=== PATIENT | female | born 1935 | race Two or more races ===

== ENCOUNTER 2025-01-13 20:54 | Emergency (ER) | payer OTHER, SELFPAY ==
--- OUTSIDE RECORDS SUMMARY | 2024-01-09 09:00 | XMS_ITS ---
Author Organization [facility] Address [address] [place] [id number] Care Team Providers Care Gas Fitter Apprentice Name Role Phone Cintia Bundy Primary Care Provider UnavailMELANI Cruz Unavailable [phone] BEAR LIU Unavailable [phone] REASON FOR VISIT Six month follow up, PCP: Dr. Cintia Bundy, Pharmacy: [facility] in [place] Medications Medication SIG (Take, Route, Frequency, Duration) Notes Start Date End Date Status Glimepiride 2 MG TAKE 1 TABLET BY EFFIE TH EVERY DAY WITH BREAKFAST OR THE FIRST MAIN MEAL OF THE DAY FOR 90 DAYS Oral; Duration: 90 Days Active Lisinopril 5 MG TAKE 1 TABLET BY EFFIE TH EVERY DAY Oral; Duration: 90 Days Active metFORMIN HCl 850 MG TAKE 1 TABLET BY MO UTH TWICE A DAY WITH MEALS Oral; Duration: 90 Days Active Methocarbamol 750 MG TAKE 1 TABLET BY MO UTH EVERY 4 HOURS NEEDED MUSCLE SPASMS Oral; Duration: 5 Days Active Rosuvastatin Calcium 20 MG TAKE 1 TABLET BY MOUTH EVERY DAY Oral; Duration: 90 Days Active Acetaminophen Extra Strength 500 MG TAKE 2 TABLETS EVERY 6 HOURS NEEDED FOR PAIN Oral; Duration: 7 Days Active Encounters Encounter Location Date Provider Diagnosis [facility] [address] [place] [address] 01/09/2024 BEAR LIU Hyperlipidemia, unspecified E78.5 ; CVA - Cerebral Infarction I63.9 ; Chest pain, precordial R07.2 ; Abnormal EKG R94.31 ; Essential (primary) hypertension I10 ; Peripheral vascular disease, unspecified I73.9 ; Venous insufficiency I87.2 ; Pain in left leg M79.605 ; Pain in right leg M79.604 and Type 2 diabetes mellitus without complications E11.9 Assessments Encounter Date Diagnosis (ICD Code) Assessment Notes Treatment Notes Treatment Clinical Notes Section Notes 01/09/2024 Hyperlipidemia, unspecified (ICD-10 - E78.5) 01/09/2024 CVA - Cerebral Infarction (ICD-10 - I63.9) 01/09/2024 Chest pain, precordial (ICD-10 - R07.2) 01/09/2024 Abnormal EKG (ICD-10 - R94.31) 01/09/2024 Essential (primary) hypertension (ICD-10 - I10) 01/09/2024 Peripheral vascular disease, unspecified (ICD-10 - I73.9) 01/09/2024 Venous insufficiency (ICD-10 - I87.2) 01/09/2024 Pain in left leg (ICD-10 - M79.605) 01/09/2024 Pain in right leg (ICD-10 - M79.604) 01/09/2024 Type 2 diabetes mellitus without complications (ICD-10 - E11.9) Plan Of Treatment Pending Test Test Name Order Date EKG - Electrocardiogram 01/09/2024 Progress Notes * Felicitas SHEPPARDOB: 8 (89 yo F)Acc No.[id number]:01/09/2024 Progress Notes Patient: Flaca MADRIGAL Provider: Devi LIU M.D. :1935 A ge:88 Y S ex:Female Date:01/09/2024 Address:[address] [place] [id number] Pcp:Cintia Bundy Subjective: * Chief Complaints: * 1 . Six month follow up. 2. PCP: Dr. Cintia Bundy. 3. Pharmacy: [facility] in [place]. * HPI: Mala alonso HPI: Ms. Sheppard is a 87 y/o woman with h/o HTN, HLP, DM, and mini-stroke in 2019 who presents to cardiology clinic for cardiac evaluation. PCP: Dr. Cintia Bundy. Referred by Dr. Cintia Bundy for HTN. ECG showed sinus rhythm with low voltage in the precordial symptoms. Per patient, in 2019, she presented with dizziness and aphasia. She was diagnosed with a mini-stroke. She was started on Aspirin, but then taken off of it 2 months after because she started having significant skin bruising. She occasionally gets chest pressure, sometimes, lasts seconds. Denies shortness of breath, palpitations, dizziness, syncope. She has LE edema and varicose veins on the right leg. She had a previous procedure in the left leg for the veins. She sometimes wears compression socks. She does have pain in her legs. She usually walks with a cane or walker. 05/2023: Here for testing follow up. 06/19 Echo showed LVEF 55-60%. G1DD. Calculated EF 58%. Trace MR, TR, and RI. 06/19 Susan stress test is ok, no ischemia noted. 06/19 Arterial study reveals slightly decreased perfusion of the lower extremity bilaterally. Minimal plaque noted bilateral lower extremity arteries. 06/19 Venous study showed no evidence of DVT of the BLE. There is evidence of right GSV relfux noted. Left GSV below knee is refluxing. Left GSV below knee is not visualized. Right SSV is refluxing. 06/19 Upper extremity arterial shows no significant velocity increase bilaterally. Carotid ultrasound not done. 07/20 Carotid US showed: Antegrade right vertebral artery flow. Antegrade left vertebral artery flow. No hemodynamically significant arterial disease in the internal carotid artery bilaterally. Plaques seen on left bulb. Complex nodule/cyst seen on left neck (area of concern as per patient). High bifurcation seen on right side Home blood pressures 128-140/87-90. Her only complaint is discomfort to her left neck in the area of the complex nodule/cyst noted on US. 01/17 Here for 6 month follow up. * ROS: M odern ROS: Modern ROS C ONSTITUTIONAL: Denies fever, chills, weight gain/loss, loss of appetite, night sweats. EYES: Denies diminished vision, eye irritation, eye pain, drainage, blurring vision, loss of vision. ENT: Denies cold, epistaxis, hearing loss, sore throat, change in voice, tinnitus, sinus pain. CARDIAC: Denies edema, orthopnea, PND. RESPIRATORY: Denies chest congestion, wheezing, cough, hemoptysis. GASTROINTESTINAL: Denies nausea, vomiting, heartburn, hemorrhoids, melena, hematemesis, abdominal pain. GENITOURINARY: Denies difficulty urinating, hematuria, polyuria, dysuria, dischange, sexual dysfunction. MUSCULOSKELETAL:Tender area to left neck. D enies joint swelling, joint pain, stiffness, sciatica, back pain, myalgia. SKIN: Denies rash, hives, skin cancer. NEURO: Denies headache, numbness, weakness, seizures, memory loss. PSYCHIATRIC: Denies depression, suicide, eating disorder. ENDOCRINE: Denies fatigue, heat/cold intolerance. HEMATOLOGIC/LYMPH: Denies swollen glands, easy bruising. ALLERGY/IMMUNOLOGY: Denies runny nose, scratchy throat, itchy eyes, ear fullness, sinus congestion.. * Medical History: * Medications: T aking Acetaminophen Extra Strength 500 MG Tablet TAKE 2 TABLETS EVERY 6 HOURS NEEDED FOR PAIN Oral , Taking Methocarbamol 750 MG Tablet TAKE 1 TABLET BY MOUTH EVERY 4 HOURS NEEDED MUSCLE SPASMS Oral , Taking Rosuvastatin Calcium 20 MG Tablet TAKE 1 TABLET BY MOUTH EVERY DAY Oral , Taking Lisinopril 5 MG Tablet TAKE 1 TABLET BY MOUTH EVERY DAY Oral , Taking metFORMIN HCl 850 MG Tablet TAKE 1 TABLET BY MOUTH TWICE A DAY WITH MEALS Oral , Taking Glimepiride 2 MG Tablet TAKE 1 TABLET BY MOUTH EVERY DAY WITH BREAKFAST OR THE FIRST MAIN MEAL OF THE DAY FOR 90 DAYS Oral Objective: * Vitals: Past Vitals:* 07/09/2023 Inhaled Oxygen Flow Rate: 99 , Wt: 146 lbs, BMI: 29.49 Index, Ht: 59 in, HR: 58 /min, BP LA: 150/84 mm Hg * 06/06/2023 Wt: 148 lbs, BMI: 29.89 Inde x, Ht: 59 in, HR: 70 /min, BP LA: 112/68 mm Hg * 05/02/2023 Wt: 149 lbs, BMI: 30.09 Inde x, Ht: 59 in, HR: 68 /min, BP LA: 126/72 mm Hg, BP Right: 156/62 * Physical Examination: P ei PE: Lisa PE G ENERAL: well nourished, well developed, no acute cardiopulmonary distress, fully alert & oriented; HEAD: normal; Eyes: PERRLA, EOM intact, normal sclera. ENT: nose normal, oropharynx is clear; NECK: supple, no carotid bruits, normal JVP, normal thyroid; CHEST: clear to auscultation bilaterally, without wheezing, rhonchi, or crackles; Breasts: deferred; CARDIOVASCULAR: regular rhythm, PMI not displaced, normal S1 & S2, no murmurs, no S3, S4, clicks, or pericardial rub; GI: abdomen soft, nontender, nondistended, normal bowel sounds; : deferred today; MUSCULOSKELETAL: joints & back normal; SKIN: No rash, warm; EXTREMITIES:Varicose veins on right leg; skin darkening changes on both legs; no clubbing, cyanosis, or edema, palpable pulses bilaterally; NEURO: grossly nonfocal, normal strength.. Assessment: * Assessment: 1. C VA - Cerebral Infarction - I63.9 (Primary) 2 . H yperlipidemia, unspecified - E78.5 3 . C hest pain, precordial - R07.2 4 . A bnormal EKG - R94.31 5 . E ssential (primary) hypertension - I10 6 . Peripheral vascular disease, unspecified - I73.9 7 . V enous insufficiency - I87.2 8 . P ain in left leg - M79.605 9 . P ain in right leg - M79.604 1 0. T ype 2 diabetes mellitus without complications - E11.9 ? Plan: * Treatment: * Imaging: * I maging: EKG - Electrocardiogram * Procedure Codes: 9 3000 -ELECTROCARDIOGRAM, COMPLETE * Preventive Medicine: Modern Preventive: M odtaylor Prevention R ecommendations to monitor blood pressure, eat a healthy diet high in fruits, vegetables, legumes, nuts, whole grains, low fat dairy and lean meats. Limit salt, saturated fat and trans fat. Read food label for nutrient content. Include regular exercise, limit alcohol intake, manage stress, and get enough sleep were discussed in detail with the patient. * Images: * Electronic signature of MARIOLA LIU MD on 01/13/2025 at 08:09 PM CDT Sign off status: Pending * Provider: Devi LIU M.D. Date: 0 01/09/2024 Generated for Rich crawford/Keiko/eTransmitting on: 0 01/13/2025 08:09 PM CDT History and Physical Notes * HPI (History of Present Illness) Category Sub-Category Detail Notes Category Not es Modern HPI Ms. Sheppard is a 87 y/o woman with h/o HTN, HLP, DM, and mini-stroke in 2018 who presents to cardiology clinic for cardiac evaluation. PCP: Dr. Cintia Bundy. Referred by Dr. Cintia Bundy for HTN. ECG showed sinus rhythm with low voltage in the precordial symptoms. Per patient, in 2019, she presented with dizziness and aphasia. She was diagnosed with a mini-stroke. She was started on Aspirin, but then taken off of it 2 months after because she started having significant skin bruising. She occasionally gets chest pressure, sometimes, lasts seconds. Denies shortness of breath, palpitations, dizziness, syncope. She has LE edema and varicose veins on the right leg. She had a previous procedure in the left leg for the veins. She sometimes wears compression socks. She does have pain in her legs. She usually walks with a cane or walker. 05/2023: Here for testing follow up. 06/19 Echo showed LVEF 55-60%. G1DD. Calculated EF 58%. Trace MR, TR, and RI. 06/19 Susan stress test is ok, no ischemia noted. 06/19 Arterial study reveals slightly decreased perfusion of the lower extremity bilaterally. Minimal plaque noted bilateral lower extremity arteries. 06/19 Venous study showed no evidence of DVT of the BLE. There is evidence of right GSV relfux noted. Left GSV below knee is refluxing. Left GSV below knee is not visualized. Right SSV is refluxing. 06/19 Upper extremity arterial shows no significant velocity increase bilaterally. Carotid ultrasound not done. 07/20 Carotid US showed: Antegrade right vertebral artery flow. Antegrade left vertebral artery flow. No hemodynamically significant arterial disease in the internal carotid artery bilaterally. Plaques seen on left bulb. Complex nodule/cyst seen on left neck (area of concern as per patient). High bifurcation seen on right side Home blood pressures 128-140/87-90. Her only complaint is discomfort to her left neck in the area of the complex nodule/cyst noted on US. 01/17 Here for 6 month follow up. Physical Examination Category Sub-Category Detail Notes Section Note s Lisa PE Lisa PE GENERAL: well no urished, well developed, no acute cardiopulmonary distress, fully alert & oriented; HEAD: normal; Eyes: PERRLA, EOM intact, normal sclera. ENT: nose normal, oropharynx is clear; NECK: supple, no carotid bruits, normal JVP, normal thyroid; CHEST: clear to auscultation bilaterally, without wheezing, rhonchi, or crackles; Breasts: deferred; CARDIOVASCULAR: regular rhythm, PMI not displaced, normal S1 & S2, no murmurs, no S3, S4, clicks, or pericardial rub; GI: abdomen soft, nontender, nondistended, normal bowel sounds; : deferred today; MUSCULOSKELETAL: joints & back normal; SKIN: No rash, warm; EXTREMITIES: Varicose veins on right leg; skin darkening changes on both legs; no clubbing, cyanosis, or edema, palpable pulses bilaterally; NEURO: grossly nonfocal, normal strength.
--- OUTSIDE RECORDS SUMMARY | 2024-03-14 05:00 | XMS_ITS ---
Author Organization [facility] Address [address] [facility] [place] [address] Care Team Providers Care Groundskeeper Name Role Phone Juan Manuel Dickerson Primary Care Provider Unavailabl NAHOMI Mendoza Unavailable Unavailable Migration, Provider Unavailable Unavailable REASON FOR VISIT EMR-Manoj Encounters Encounter Location Date Provider Diagnosis [facility] [address] [facility] [address] [place] [address] 03/14/2024 Provider Migration Plan Of Treatment Medication Medication Name Sig Start Date Stop Date Notes Simvastatin 10 MG Oral 12/30/2015 03/29/2016 Lyrica 50 MG Oral 01/10/2016 02/09/2016 Vit D2 1.25 Mg (50,000 Unit) 01/10/2016 016 *Reorder from [facility] for eRx and Interaction Alerts* Progress Notes * Felicitas SHEPPARDOB: 8 (89 yo F)Acc No.[id number]:03/14/2024 Patient: Flaca MADRIGAL :1935 A ge:88 Y S ex:Female Address:[address], [place], [address] * Refills Stop Lyrica Capsule, 50 MG, Oral Stop Vit D2 1.25 Mg (50,000 Unit) Stop Simvastatin Tablet, 10 MG, Oral Subjective: * Chief Complaints: * E MR-Manoj * Medical History: * Surgical History: * Hospitalization/Major Diagno stic Procedure: * Medications: Objective: * Vitals: * Physical Examination: Assessment: Plan: * Treatment: * Procedure Codes: * * Date:
--- OUTSIDE RECORDS SUMMARY | 2024-03-15 05:00 | XMS_ITS ---
Author Organization [facility] Address [address] [place] [address] Care Team Providers Care Fruit Packer Name Role Phone Juan Manuel Dickerson Primary Care Provider Unavailabl e NAHOMI FRIAS Unavailable Unavailable Migration, Provider Unavailable Unavailable REASON FOR VISIT [facility] [place] Encounter Location Date Provider Diagnosis [facility] [address] [facility] [address] [place] [address] 03/15/2024 Provider Migration Plan Of Treatment No Information Progress Notes * Felicitas SHEPPARDOB: 8 (89 yo F)Acc No.[id number]:03/15/2024 Patient: Flaca MADRIGAL :1935 A ge:88 Y S ex:Female Address:[address] [place] [address] Subjective: * Chief Complaints: * E MR-Manoj * Medical History: * Surgical History: C holecystectomy * Hospitalization/Major Diagno stic Procedure: * Social History: M igrated Social History: alcohol - Denies, a ny special diet - Denies, h epatitis vaccine A - Denies, h epatitis vaccine B - Denies, m ood altering/ enhancing drugs - Denies, r ecreational drugs - Denies, s leeping medications - Denies, s moking - Denies, S moking Status (MU) - <BLANK>. * Medications: Objective: * Vitals: * Physical Examination: Assessment: Plan: * Treatment: * Procedure Codes: * * Date:
--- OUTSIDE RECORDS SUMMARY | 2025-01-13 21:08 | XMS_ITS | Encounter Summary ---
Author Organization [facility] Address [address] [place] [address] Care Team Providers Care Appliance Installer Name Role Phone Huan Martinez MD Primary Care Provi lani Reason for Referral * MRI/CAT/PET Scan (Routine) - Closed Specialty Diagnoses / Procedures Referred By Contac t Referred To Contact Radiology Diagnoses Chronic post-traumatic headache, intractable Procedures CT Head Wo Contrast Huan Martinez MD Phone: tel: fax: [facility] [address] [place] [address] Referral ID Status Reason Start Date Expiration Date Visits Re quested Visits Authorized [id number] Closed 05/04/2021 08/08/2021 1 1 SHOVEL OPERATOR Encounter Details Date Type Department Care Team (Late st Contact Info) Description 05/04/2021 Transcribe Orders [facility] Central Scheduling [phone] Huan Martinez MD [address] [place] [id number] Chronic post-traumatic headache, intractable (Primary Dx); Low back pain; Localized swelling, mass and lump, right lower limb Social History Tobacco Use Types Packs/Day Years Used Date Smoking Tobacco: Never Smokeless Tobacco: Never Alcohol Use Standard Drinks/Week Comments Never 0 (1 standard drink = 0.6 oz pur e alcohol) PHQ-2 Answer Date Recorded PHQ-9 Total Score 0 12/15/2020 Comments No Sex and Gender Information Value Date Recorded Sex Assigned at Not on file Legal Sex Female 2:17 AM GAS SHOVEL OPERATOR Gender Identity Not on file Sexual Orientation Not on file COVID-19 Exposure Response Date Recorded In the last month, have you been in contact with someone who was confirmed or suspected to have Coronavirus / COVID-19? 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 No fracture, suspicious osseous lesion, or ankylosis identified. [id number] Procedure Note Romulo Pa MD - 05/16/2021 EXAMINATION: XR SACRUM AND COCCYX CLINICAL HISTORY: M54.50 Low back pain unspecified, R22.41 Localizedswelling mass and lump right lower limb, swelling mass lump trunk lowback pain COMPARISON: None IMPRESSION: Moderate to marked degenerative changes of the sacroiliac joints withprominent areas of subchondral sclerosis and marginal osteophyteformation. No fracture, suspicious osseous lesion, or ankylosis identified. [id number] us Huan Martinez MD IMG DIAGNOSTIC IMAG ING ORDERABLES Final Result * CT Head Wo Contrast (05/16/2021 9:49 AM GAS SHOVEL OPERATOR) Anatomical Region Laterality Modality Head Computed Tomogra phy 05/16/2021 9:53 AM GAS SHOVEL OPERATOR Narrative 05/16/2021 10:22 AM GAS SHOVEL OPERATOR EXAMINATION: CT HEAD WO CONTRAST CLINICAL HISTORY: G44.321 Chronic post-traumatic headache intractable, headache COMPARISON: CT head December 14, 2020 TECHNIQUE: Noncontrast head CT performed using radiation dose reduction techniques. Technical factors are evaluated and adjusted to ensure appropriate moderation of exposure. Automated dose management technology is applied to adjust radiation exposure while achieving a diagnostic quality image. FINDINGS: No evidence of acute intracranial hemorrhage, mass, mass effect, midline shift, or acute infarct. Moderate chronic microvascular ischemic changes of the white matter. Diffuse volume loss. No hydrocephalus. Basal cisterns are clear. Calvarium is intact. Bilateral eye lens replacement changes. Partially seen mild mucosal thickening of the bilateral maxillary sinuses. Atherosclerotic changes of the vertebral arteries, basilar artery and carotid siphons. IMPRESSION: 1. No CT evidence of acute intracranial abnormality. 2. Involutional changes as described. [facility]-[id number] Procedure Note Keith Martinez MD - 05/16/2021 EXAMINATION: CT HEAD WO CONTRAST CLINICAL HISTORY: G44.321 Chronic post-traumatic headache intractable,headache COMPARISON: CT head December 14, 2020 TECHNIQUE: Noncontrast head CT performed using radiation dose reductiontechniques. Technical factors are evaluated and adjusted to ensureappropriate moderation of exposure. Automated dose management technologyis applied to adjust radiation exposure while achieving a diagnostic quality image. FINDINGS: No evidence of acute intracranial hemorrhage, mass, mass effect, midlineshift, or acute infarct. Moderate chronic microvascular ischemic changes of the white matter.Diffuse volume loss. No hydrocephalus. Basal cisterns are clear. Calvariumis intact. Bilateral eye lens replacement changes. Partially seen mild mucosalthickening of the bilateral maxillary sinuses. Atherosclerotic changes ofthe vertebral arteries, basilar artery and carotid siphons. IMPRESSION: 1. No CT evidence of acute intracranial abnormality. 2. Involutional changes as described. [facility]-[id number] Huan Martinez MD IMG CT ORDERABLES F inal Result documented in this encounter Visit Diagnoses Diagnosis Chronic post-traumatic headache, intractable- Primary Low back pain Lumbago Localized swelling, mass and lump, right lower limb documented in this encounter Additional Health Concerns Infection Onset Date Last Indicated Resolved Time ESBL (C ) Comment:Urine 12/13/20 12/13/2020 12/16/2020 01/08/2023 7:27 PM CDT documented as of this encounter Care Teams Appliance Installer Relationship Specialty Start Date End Date Huan Martinez MD PCP - General Family Medicine 05/18/20 documented as of this encounter
--- OUTSIDE RECORDS SUMMARY | 2025-01-13 21:09 | XMS_ITS | Encounter Summary ---
Author Organization [id number] [address] [place] [address] Care Team Providers Care [employer] History Teacher Name Role Phone Margaret Swann MD Primary Care Provider Reason for Visit * Reason Comments Med Refill Encounter Details Date Type Department Care Team (Late st Contact Info) Description 05/14/2020 Refill [facility] [address] [place] [phone] Mis Hugo MD [address] [place] [address] Itching Social History Tobacco Use Types Packs/Day Years Used Date Smoking Tobacco: Former Smokeless Tobacco: Never Alcohol Use Standard Drinks/Week Comments No 0 (1 standard drink = 0.6 oz pur e alcohol) Childcare Answer Date Recorded Childcare Unknown 11/05/2018 Employment Answer Date Recorded Employment Unknown 11/05/2018 Comments No Sex and Gender Information Value Date Recorded Sex Assigned at Not on file Legal Sex Female 12:06 PM EDT Gender Identity Not on file Sexual Orientation Not on file documented as of this encounter Plan of Treatment Not on file documented as of this encounter Visit Diagnoses Diagnosis Itching Unspecified pruritic disorder documented in this encounter Care Teams [employer] History Teacher Relationship Specialty Start Date End Date Margaret Swann MD [address] [place] [address] PCP - General Family Medicine 12/18/21 documented as of this encounter
--- OUTSIDE RECORDS SUMMARY | 2025-01-13 21:09 | XMS_ITS | Clinical Summary ---
Author Organization [facility] Address [address] [place] [address] Care Team Providers Care Inspector Semiconductor Wafer Name Role Phone Huan Martinez MD Primary Care Provi lani Allergies No known active allergies Medications metFORMIN (GLUCOPHAGE) 850 mg tablet Take 850 mg by mouth 2 (two) times a day with meals. 1 Active glimepiride (AMARYL) 2 MG tablet 1 TABLET WITH BREAKFAST OR THE FIRST MAIN MEAL OF THE DAY ONCE A DAY IN THE MORNING ORALLY 90 1 Active hydrOXYzine (ATARAX) 25 MG tablet Take 25 mg by mouth every 8 (eight) hours as needed for itching. Active omega 4-ues-kql-fish oil (Fish Oil) 100-160-1,000 mg capsule Take by mouth. Acti ve multivit-min/FA /lycopen/lutein (SENTRY SENIOR ORAL) Take by mouth. Activ e Active Problems Problem Noted Date Diagnosed Date Aphasia 12/13/2020 Immunizations Immunization Administration Dates Next Due FLUZONE HIGH-DOSE PF 01/29/2020 PFIZER COVID-19 MRNA VACCINATION 06/24/2020,010 12/2020 PFIZER READY TO USE COVID-19 MRNA VACCINATION Pneumococcal Conjugate 13-Valent 01/29/2020 Zoster Vaccine Recombinant 01/29/2020 Social History Tobacco Use Types Packs/Day Years Used Date Smoking Tobacco: Never Smokeless Tobacco: Never Alcohol Use Standard Drinks/Week Comments Never 0 (1 standard drink = 0.6 oz pur e alcohol) PHQ-2 Answer Date Recorded PHQ-9 Total Score 0 12/15/2020 Comments No Sex and Gender Information Value Date Recorded Sex Assigned at Not on file Legal Sex Female 2:17 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 Gender Identity Not on file Sexual Orientation Not on file Last Filed Vital Signs Vital Sign Reading Time Taken Comments Blood Pressure 106/57 12/16/2020 3:30 PM CDT Pulse 70 12/16/2020 3:30 PM CDT Temperature 36.8 C (98.2 F) 12/16/2020 3:30 PM CDT Respiratory Rate 19 12/16/2020 3:30 PM CDT Oxygen Saturation 98% 12/16/2020 3:30 PM CDT Inhaled Oxygen Concentration - - Weight 74.8 kg (165 lb) 12/13/2020 9:04 PM CDT Height - - Body Mass Index - - Plan of Treatment Health Maintenance Due Date Last Done Comments SHINGLES VACCINES (2 of 2) 03/25/2020 01/29/2020 50+ PNEUMOCOCCAL VACCINE (2 of 2 - PCV20 or PCV21) 01/28/2021 01/29/2020 COVID-19 VACCINE (4 - 2023-2 5 season) 2024 07/06/2021, 06/24/2020, 06/03/2020 INFLUENZA VACCINE (#1) 2025 01/29/2020 MENINGOCOCCAL B SERIES VACCINE Aged Out No longer eligible based on patient's age to complete this topic [place] [address] [address] DUAL COMPLETE HMO Care Teams Inspector Semiconductor Wafer Relationship Specialty Start Date End Date Huan Martinez MD PCP - General Family Medicine 05/18/20
--- OUTSIDE RECORDS SUMMARY | 2025-01-13 21:09 | XMS_ITS | Patient Health Record ---
Author Organization [facility] Address [address], [address] [place] [address] Care Team Providers Care Tree Planter Name Role Phone ADAMSOTIS Primary Care Provider Unavailabl e Allergies No Known Allergies Reason For Referral No Information Medications Medication SIG (Take, Route, Frequency, Duration) Notes Start Date End Date Status metFORMIN HCl 850 MG 1 tablet with a renetta l Orally Once a day; Duration: 30 day(s) Active Glimepiride 2 MG 1 tablet with breakf ast or the first main meal of the day Orally Once a day; Duration: 30 day(s) Active Centrum Women - as directed Orally Active Rosuvastatin Calcium 20 MG 1 tablet Oral ly Once a day; Duration: 30 day(s) Active Meloxicam 7.5 MG 1 tablet Orally Once a day; Duration: 30 day(s) Active Lisinopril 5 MG 1 tablet Orally Once a day; Duration: 30 day(s) Active Social History Tobacco Use: Social History Observation Description Date Details (start date - stop date) Never Smoker NA - NA Tobacco Use/Smoking Question Answer Notes You are a nonsmoker Problems Problem Type SNOMED Code ICD Code Onset Dates Problem Status W/U Status Risk Notes Problem Acquired spondylolisthesis (224742334) Spondylolisthesis , lumbar region (M43.16) Active confirmed Problem Acquired spondylolisthesis (814783647) Spondylolisthesis , lumbosacral region (M43.17) Active confirmed 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 [address] [place] [phone] [id number] ZEB HINOJOSA Self - patient is the insured Medical (General) History Medical History History ICD Code HTN/HLD DM Surgical History Surgery Date(Month/Year) GALLBLADDER Hospitalization History Reason Date(Month/Year) ABOVE PANCREAS MINI STROKE
--- OUTSIDE RECORDS SUMMARY | 2025-01-13 21:09 | XMS_ITS | Encounter Summary ---
Author Organization [facility] Address [address] [place] [address] Care Team Providers Care Solar System Designer Name Role Phone Huan Martinez MD Primary Care Provi lani Reason for Referral * Diagnostic Imaging (Routine) - Closed Specialty Diagnoses / Procedures Referred By Contac t Referred To Contact Procedural Cardiology Diagnoses Methicillin resistant Staphylococcus aureus infection, unspecified site Procedures Us duplex arterial lower extremity Huan Martinez MD Phone: tel: fax: [address] [address] Phone: tel: Referral ID Status Reason Start Date Expiration Date V isits Requested Visits Authorized [id number] Closed Other 08/22/2020 08/22/2021 1 1 Encounter Details Date Type Department Care Team (Late st Contact Info) Description 08/22/2020 Transcribe Orders [facility] Central Scheduling [phone] Huan Martinez MD [address] [place] [id number] Methicillin resistant Staphylococcus aureus infection, unspecified site (Primary Dx) Social History Tobacco Use Types Packs/Day Years Used Date Smoking Tobacco: Never Assessed Comments Unknown Sex and Gender Information Value Date Recorded Sex Assigned at Not on file 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 No / Unsure 08/22/2020 3:11 PM CDT documented as of this encounter Plan of Treatment Not on file documented as of this encounter Results * US DUPLEX ARTERIAL LOWER EXTREMITY BILATERAL (09/02/2020 4:36 PM CDT) Anatomical Region Laterality Modality Lower Extremities, Vascular Ultr asound 09/02/2020 5:25 PM CDT Narrative 09/02/2020 5:29 PM CDT EXAM: US DUPLEX ARTERIAL LOWER EXTREMITY BILATERAL HISTORY: A49.02 Methicillin resistant Staphylococcus aureus infection unspecified site, methicillin resistant staphy lococys infection TECHNIQUE: Real-time as well as pulsed and color Doppler evaluation of bilateral common femoral, femoral, popliteal, posterior tibial, anterior tibial, and dorsalis pedis arteries are evaluated. The examination includes a full duplex Doppler scan of the blood vessels (real-time P mode grayscale, Doppler spectral analysis, and Doppler color flow imaging). COMPARISON: None available IMPRESSION: 1.Calcified atherosclerotic plaque is identified in the interrogated arteries which are patent. 2.Significantly decreased velocity is noted in the right posterior tibial artery with associated conversion to monophasic waveforms suggesting a focal hemodynamically significant stenosis in this location. 3.Triphasic and biphasic waveforms are otherwise seen in the interrogated arteries without additional velocity gradient to suggest additional focal stenoses. FINDINGS: RIGHT LEG: PEAK SYSTOLIC VELOCITIES ARE FOLLOWS: COMMON FEMORAL: 52 cm/s FEMORAL: Proximal: 52.4 cm/s Mid: 55.4 cm/s Distal: 77.8 cm/s POPLITEAL: Proximal: 48 cm/s Mid: 45.7 cm/s Distal: 33.9 cm/s POSTERIOR TIBIAL: Proximal: 42.5 cm/s Mid: 11.8 cm/s Distal: 13.3 cm/s ANTERIOR TIBIAL: Proximal: 45.8 cm/s Mid: 51.2 cm/s Distal: 69.8 cm/s DORSALIS PEDIS: 56.1 cm/s DOPPLER WAVEFORMS: COMMON FEMORAL: Triphasic FEMORAL Proximal: Triphasic Mid: Triphasic Distal: Triphasic POPLITEAL Proximal: Triphasic Mid: Triphasic Distal: Triphasic POSTERIOR TIBIAL Proximal: Biphasic Mid: Monophasic Distal: Monophasic ANTERIOR TIBIAL Proximal: Biphasic Mid: Triphasic Distal: Triphasic DORSALIS PEDIS: Triphasic LEFT LEG: PEAK SYSTOLIC VELOCITIES ARE FOLLOWS: COMMON FEMORAL: 53.6 cm/s FEMORAL: Proximal: 87.8 cm/s Mid: 71.3 cm/s Distal: 43.5 cm/s POPLITEAL: Proximal: 38.1 cm/s Mid: 44.9 cm/s Distal: 65.8 cm/s POSTERIOR TIBIAL: Proximal: 34.2 cm/s Mid: 44.4 cm/s Distal: 40.2 cm/s ANTERIOR TIBIAL: Proximal: 50.1 cm/s Mid: 52.6 cm/s Distal: 64.9 cm/s DORSALIS PEDIS: 56.7 cm/s DOPPLER WAVEFORMS: COMMON FEMORAL: Triphasic FEMORAL Proximal: Triphasic Mid: Triphasic Distal: Triphasic POPLITEAL Proximal: Triphasic Mid: Triphasic Distal: Triphasic POSTERIOR TIBIAL Proximal: Biphasic Mid: Biphasic Distal: Biphasic ANTERIOR TIBIAL Proximal: Triphasic Mid: Biphasic Distal: Triphasic DORSALIS PEDIS: Biphasic [facility]-[id number] Procedure Note Seng Moreno MD - 09/02/2020 EXAM: US DUPLEX ARTERIAL LOWER EXTREMITY BILATERAL HISTORY: A49.02 Methicillin resistant Staphylococcus aureus infectionunspecified site, methicillin resistant staphy lococys infection TECHNIQUE: Real-time as well as pulsed and color Doppler evaluation ofbilateral common femoral, femoral, popliteal, posterior tibial, anteriortibial, and dorsalis pedis arteries are evaluated. The examinationincludes a full duplex Doppler scan of the blood vessels (real-time P mode grayscale, Doppler spectral analysis, andDoppler color flow imaging). COMPARISON: None available IMPRESSION: 1.Calcified atherosclerotic plaque is identified in the interrogatedarteries which are patent. 2.Significantly decreased velocity is noted in the right posterior tibialartery with associated conversion to monophasic waveforms suggesting afocal hemodynamically significant stenosis in this location. 3.Triphasic and biphasic waveforms are otherwise seen in the interrogatedarteries without additional velocity gradient to suggest additional focalstenoses. FINDINGS: RIGHT LEG: PEAK SYSTOLIC VELOCITIES ARE FOLLOWS: COMMON FEMORAL: 52 cm/s FEMORAL: Proximal: 52.4 cm/s Mid: 55.4 cm/s Distal: 77.8 cm/s POPLITEAL: Proximal: 48 cm/s Mid: 45.7 cm/s Distal: 33.9 cm/s POSTERIOR TIBIAL: Proximal: 42.5 cm/s Mid: 11.8 cm/s Distal: 13.3 cm/s ANTERIOR TIBIAL: Proximal: 45.8 cm/s Mid: 51.2 cm/s Distal: 69.8 cm/s DORSALIS PEDIS: 56.1 cm/s DOPPLER WAVEFORMS: COMMON FEMORAL: Triphasic FEMORAL Proximal: Triphasic Mid: Triphasic Distal: Triphasic POPLITEAL Proximal: Triphasic Mid: Triphasic Distal: Triphasic POSTERIOR TIBIAL Proximal: Biphasic Mid: Monophasic Distal: Monophasic ANTERIOR TIBIAL Proximal: Biphasic Mid: Triphasic Distal: Triphasic DORSALIS PEDIS: Triphasic LEFT LEG: PEAK SYSTOLIC VELOCITIES ARE FOLLOWS: COMMON FEMORAL: 53.6 cm/s FEMORAL: Proximal: 87.8 cm/s Mid: 71.3 cm/s Distal: 43.5 cm/s POPLITEAL: Proximal: 38.1 cm/s Mid: 44.9 cm/s Distal: 65.8 cm/s POSTERIOR TIBIAL: Proximal: 34.2 cm/s Mid: 44.4 cm/s Distal: 40.2 cm/s ANTERIOR TIBIAL: Proximal: 50.1 cm/s Mid: 52.6 cm/s Distal: 64.9 cm/s DORSALIS PEDIS: 56.7 cm/s DOPPLER WAVEFORMS: COMMON FEMORAL: Triphasic FEMORAL Proximal: Triphasic Mid: Triphasic Distal: Triphasic POPLITEAL Proximal: Triphasic Mid: Triphasic Distal: Triphasic POSTERIOR TIBIAL Proximal: Biphasic Mid: Biphasic Distal: Biphasic ANTERIOR TIBIAL Proximal: Triphasic Mid: Biphasic Distal: Triphasic DORSALIS PEDIS: Biphasic [id number] us Huan Martinez MD CV VASCULAR ORDERAB LES Final Result documented in this encounter Visit Diagnoses Diagnosis Methicillin resistant Staphylococcus aureus infection, unspecified site- Primary documented in this encounter Additional Health Concerns Infection Onset Date Last Indicated Resolved Time ESBL (C ) Comment:Urine 12/13/20 12/13/2020 12/16/2020 01/08/2023 7:27 PM CDT documented as of this encounter Care Teams Solar System Designer Relationship Specialty Start Date End Date Huan Martinez MD PCP - General Family Medicine 05/18/20 documented as of this encounter
--- OUTSIDE RECORDS SUMMARY | 2025-01-13 21:09 | XMS_ITS | Encounter Summary ---
Author Organization [facility] Address [address] [place] [address] Care Team Providers Care Ict Sales Representative Name Role Phone Huan Martinez MD Primary Care Provi lani Reason for Referral * Diagnostic Imaging (Routine) - Closed Specialty Diagnoses / Procedures Referred By Contac t Referred To Contact Procedural Cardiology Diagnoses Acute embolism and thrombosis of other specified deep vein of lower extremity, bilateral (HCC) Procedures Us duplex venous lower extremity Huan Martinez MD Phone: tel: fax: [facility] [address] [place] [address] Referral ID Status Reason Start Date Expiration Date V isits Requested Visits Authorized [id number] Closed Other 05/17/2020 05/17/2021 1 1 E LINING MAKER Encounter Details Date Type Department Care Team (Late st Contact Info) Description 05/17/[address] [facility] Central Scheduling [phone] Huan Martinez MD [address] [place] [phone] Acute embolism and thrombosis of other specified deep vein of lower extremity, bilateral (HCC) (Primary Dx) Social History Tobacco Use Types Packs/Day Years Used Date Smoking Tobacco: Never Assessed Comments Unknown Sex and Gender Information Value Date Recorded Sex Assigned at Not on file Legal Sex Female 2:17 AM BRAKE LINING MAKER Gender Identity Not on file Sexual Orientation Not on file COVID-19 Exposure Response Date Recorded In the last month, have you been in contact with someone who was confirmed or suspected to have Coronavirus / COVID-19? No / Unsure 05/17/2020 12:25 PM BRAKE LINING MAKER documented as of this encounter Plan of Treatment Not on file documented as of this encounter Results * US DUPLEX VENOUS LOWER EXTREMITY BILATERAL (05/18/2020 4:42 PM BRAKE LINING MAKER) Anatomical Region Laterality Modality Lower Extremities, Vascular Ultr asound 05/18/2020 4:50 PM BRAKE LINING MAKER Narrative 05/18/2020 4:51 PM BRAKE LINING MAKER EXAMINATION: US DUPLEX VENOUS LOWER EXTREMITY BILATERAL CLINICAL HISTORY: I82.493 Acute embolism and thrombosis of other specified deep vein of lower extremity bilateral, Leg deep vein thrombosis (DVT) suspected COMPARISON: None. TECHNIQUE: Grayscale, color Doppler, and spectral waveform analysis of the bilateral lower extremity deep venous systems was performed. The bilateral common femoral, superficial femoral, proximal deep femoral, greater saphenous, and popliteal veins were evaluated. The calf vessels were also evaluated. FINDINGS: The bilateral common femoral, superficial femoral, and popliteal veins are compressible. They demonstrate normal venous waveforms and response to augmentation. There is flow in the visualized calf veins. There is no evidence of a popliteal or Saenz's cyst. IMPRESSION: 1.There is no evidence of deep venous thrombosis. [id number] Procedure Note Jake Holguin III, MD - 05/18/2020 EXAMINATION: US DUPLEX VENOUS LOWER EXTREMITY BILATERAL CLINICAL HISTORY: I82.493 Acute embolism and thrombosis of otherspecified deep vein of lower extremity bilateral, Leg deep veinthrombosis (DVT) suspected COMPARISON: None. TECHNIQUE: Grayscale, color Doppler, and spectral waveform analysis ofthe bilateral lower extremity deep venous systems was performed. Thebilateral common femoral, superficial femoral, proximal deep femoral,greater saphenous, and popliteal veins were evaluated. The calf vessels were also evaluated. FINDINGS: The bilateral common femoral, superficial femoral, and popliteal veins arecompressible. They demonstrate normal venous waveforms and response toaugmentation. There is flow in the visualized calf veins. There is no evidence of a popliteal or Saenz's cyst. IMPRESSION: 1.There is no evidence of deep venous thrombosis. [id number] Huan Martinez MD CV VASCULAR ORDERAB LES Final Result documented in this encounter Visit Diagnoses Diagnosis Acute embolism and thrombosis of other specified deep vein of lower extremity, bilateral (HCC)- Primary documented in this encounter Additional Health Concerns Infection Onset Date Last Indicated Resolved Time r/o Coronavirus COVID-19 ([place] spected) (A+C) 06/02/2020 06/02/2020 06/04/2020 7:[address] ESBL (C ) Comment:Urine 12/13/20 12/13/2020 12/16/2020 01/08/2023 7:27 PM CDT documented as of this encounter Care Teams Ict Sales Representative Relationship Specialty Start Date End Date Huan Martinez MD PCP - General Family Medicine 05/18/20 documented as of this encounter
--- OUTSIDE RECORDS SUMMARY | 2025-01-13 21:09 | XMS_ITS | Clinical Summary ---
Author Organization [facility] Address [address], [address] [place] [address] Care Team Providers Care Executive Personal Assistant Name Role Phone Margaret Swann MD Primary Care Provider [phone] Allergies No known active allergies Medications metFORMIN (GLUCOPHAGE) 850 MG tablet Take 850 mg by mouth 2 times daily (with meals) Active simvastatin (ZOCOR) 10 MG tablet Take 10 mg by mouth nightly Active lisinopril (PRINIVIL;ZESTR IL) 5 MG tablet Take 5 mg by mouth daily Active clonazePAM (KLONOPIN) 0.5 MG tablet Take 0.5 mg by mouth 2 times daily as needed. Active omeprazole (PRILOSEC) 20 MG delayed release capsule Take 20 mg by mouth daily Active loratadine (CLARITIN) 10 MG capsule Take 10 mg by mouth daily Active omega-3 acid ethyl esters (LOVAZA) 1 g capsule Take 2 g by mouth 2 times daily Active meloxicam (MOBIC) 15 MG tablet Take 1 tablet by mouth daily 30 tablet 3 08/15/2017 Active Family History Relation Name Status Comments Father Mother Social History Tobacco Use Types Packs/Day Years Used Date Smoking Tobacco: Never Smokeless Tobacco: Never Alcohol Use Standard Drinks/Week Comments No 0 (1 standard drink = 0.6 oz pur e alcohol) Comments No Sex and Gender Information Value Date Recorded Sex Assigned at Not on file Legal Sex Female 6:48 PM EST Gender Identity Not on file Sexual Orientation Not on file Last Filed Vital Signs Vital Sign Reading Time Taken Comments Blood Pressure 130/75 08/15/2017 2:40 PM EDT Pulse 69 08/15/2017 2:40 PM EDT Temperature - - Respiratory Rate - - Oxygen Saturation - - Inhaled Oxygen Concentration - - Weight 69.9 kg (154 lb) 08/15/2017 2:40 PM EDT Height 152.4 cm (5') 08/15/2017 2:40 PM EDT Body Mass Index 30.08 08/15/2017 2:40 PM EDT Plan of Treatment Not on file Insurance MEDICAID [place] MEDICARE Care Teams Executive Personal Assistant Relationship Specialty Start Date End Date Margaret Swann MD [facility] [place] [address] PCP - General Family Medicine 08/01/17
--- OUTSIDE RECORDS SUMMARY | 2025-01-13 21:09 | XMS_ITS | Clinical Summary ---
Author Organization [facility] Address [id number] [address] [place] [address] Care Team Providers Care Hand Laster Name Role Phone Margaret Swann MD Primary Care Provider [phone] Allergies No known active allergies Medications psyllium (METAMUCIL) 3.4 gram packet Take 1 packet by mouth daily. Active MULTIVITAMIN ORAL Take 1 tablet by mouth daily. Active aspirin 81 mg Take 81 mg by mouth daily. Active calcium carbonate-vitam in D3 1,000 mg(2,500 mg)-800 unit tablet Take 1 tablet by mouth daily. Active triamcinolone-e mollient cmb#86 0.1 % cream Apply topically 2 (two) times a day. Active lisinopril (PRINIVIL,ZESTR IL) 5 mg tablet Take 5 mg by mouth daily. Active omega-3 acid ethyl esters (LOVAZA) 1 gram capsule Take 2 g by mouth 2 (two) times a day. Active clonazePAM (KlonoPIN) 0.5 mg tablet Take 0.5 mg by mouth 2 (two) times a day as needed for seizures. 1/2 to 1 tablet BID prn Active omeprazole (PriLOSEC) 20 mg capsule Take 20 mg by mouth daily. Active simvastatin (ZOCOR) 10 mg tablet Take 10 mg by mouth daily. Active metFORMIN (GLUCOPHAGE) 850 mg tablet Take 850 mg by mouth 2 (two) times a day with meals. Active ibuprofen (ADVIL,MOTRIN) 600 mg tablet Take 600 mg by mouth 2 (two) times a day as needed for pain. Active fluticasone propionate (FLONASE) 50 mcg/actuation nasal spray Administer 1 spray into each nostril 2 (two) times a day. Active loratadine (CLARITIN) 10 mg tablet Take 10 mg by mouth daily as needed for allergies. Active glimepiride (AMARYL) 2 mg tablet Take 2 mg by mouth every morning before breakfast. Active pantoprazole (PROTONIX) 40 mg EC tablet Take 40 mg by mouth as needed. Active cetirizine (ZyrTEC) 10 mg tabletIndicatio ns:Itching TAKE 1 TABLET BY MOUTH EVERY DAY 30 tablet 2 0 Active Additional Information Patient not taking.Reported on 12/18/2021 clobetasoL (TEMOVATE) 0.05 % ointment PLEASE SEE ATTACHED FOR DETAILED DIRECTIONS 2 Active Active Problems Problem Noted Date Diagnosed Date Spinal stenosis of lumbar region 10/16/2017 Overview (10/16/2017): Added automatically from request for surgery [id number] Disorder of sacrum 02/07/2017 Overview (02/07/2017): Added automatically from request for surgery [id number] Lumbar spinal stenosis 12/20/2016 Displacement of lumbar inter vertebral disc without myelopathy 11/05/2016 Diabetes Family History Medical History Relation Name Comments No Known Problems Father Stroke Mother Relation Name Status Comments Father Mother Social History Tobacco Use Types Packs/Day Years Used Date Smoking Tobacco: Former Smokeless Tobacco: Never Alcohol Use Standard Drinks/Week Comments No 0 (1 standard drink = 0.6 oz pur e alcohol) Childcare Answer Date Recorded Childcare Unknown 11/05/2018 Employment Answer Date Recorded Employment Unknown 11/05/2018 Purpose - Life Answer Date Recorded Purpose and direction in life Unknown Comments No Sex and Gender Information Value Date Recorded Sex Assigned at Not on file Legal Sex Female 12:06 PM EDT Gender Identity Not on file Sexual Orientation Not on file Last Filed Vital Signs Vital Sign Reading Time Taken Comments Blood Pressure 122/80 12/18/2021 8:14 AM EDT Pulse 80 12/18/2021 8:14 AM EDT Temperature 36.8 C (98.3 F) 12/18/2021 8:14 AM EDT Respiratory Rate 20 12/18/2021 8:14 AM EDT Oxygen Saturation 97% 10/18/2017 9:35 AM EDT Inhaled Oxygen Concentration - - Weight 72.6 kg (160 lb) 12/18/2021 8:14 AM EDT Height 144.8 cm (4' 9 ) 12/31/2019 4:06 PM EDT Body Mass Index 34.62 12/31/2019 4:06 PM EDT Plan of Treatment Health Maintenance Due Date Last Done Comments Depression Screening 1947 Tobacco Screening 1947 DTaP,Tdap and Td Vaccines (1 - Tdap) 1956 Fall Risk Screening 2002 Zoster (Shingles) Vaccine (2 of 2) 03/25/20202019 Influenza Vaccine 01/25/2025 01/29/2020, 02/01/2017 Medical Devices Not on file Insurance [employer] MEDICARE MEDICAID Care Teams Hand Laster Relationship Specialty Start Date End Date Margaret Swann MD [address] [place] [phone] PCP - General Family Medicine 12/18/21
--- OUTSIDE RECORDS SUMMARY | 2025-01-13 21:09 | XMS_ITS | Encounter Summary ---
Author Organization [facility] Address [address] [place] [address] Care Team Providers Care Parts Counterperson Name Role Phone Huan Martinez MD Primary Care Provi lani Reason for Referral * MRI/CAT/PET Scan (Routine) - Closed Specialty Diagnoses / Procedures Referred By Contac t Referred To Contact Radiology Diagnoses Gastro-esophageal reflux disease with esophagitis Procedures CT Abdomen W Contrast Huan Martinez MD Phone: tel: fax: [facility] [address] [place] [address] Referral ID Status Reason Start Date Expiration Date Visits Re quested Visits Authorized [id number] Closed 05/23/2020 05/23/2021 1 1 TIFICATION AND RECORDS COMMANDER Encounter Details Date Type Department Care Team (Late st Contact Info) Description 05/23/2020 Transcribe Orders [facility] Central Scheduling [phone] Huan Martinez MD [address] [place] [id number] Gastro-esophageal reflux disease with esophagitis (Primary Dx) Social History Tobacco Use Types Packs/Day Years Used Date Smoking Tobacco: Never Assessed Comments Unknown Sex and Gender Information Value Date Recorded Sex Assigned at Not on file Legal Sex Female 2:17 AM IDENTIFICATION AND RECORDS COMMANDER Gender Identity Not on file Sexual Orientation Not on file COVID-19 Exposure Response Date Recorded In the last month, have you been in contact with someone who was confirmed or suspected to have Coronavirus / COVID-19? No / Unsure 05/23/2020 2:09 PM IDENTIFICATION AND RECORDS COMMANDER documented as of this encounter Plan of Treatment Not on file documented as of this encounter Results * CT Abdomen W Contrast (05/30/2020 12:47 PM IDENTIFICATION AND RECORDS COMMANDER) Anatomical Region Laterality Modality Abdomen Computed Tomogra phy 05/30/2020 2:34 PM IDENTIFICATION AND RECORDS COMMANDER Narrative 05/30/2020 2:44 PM IDENTIFICATION AND RECORDS COMMANDER EXAMINATION: CT ABDOMEN W CONTRAST CLINICAL HISTORY: K21.00 Gastro-esophageal reflux disease with esophagitis without bleeding, REFLUX TECHNIQUE:Multiple axial images of the abdomen were obtained following intravenous administration of iodinated contrast. Sagittal and coronal computerized reformatted images were also obtained. COMPARISON: August 1999 CT scans are performed using radiation dose reduction techniques. Technical factors are evaluated and adjusted to ensure appropriate moderation of exposure. Automated dose management technology is applied to adjust radiation exposure while achieving a diagnostic quality image. FINDINGS: The visualized LOWER LUNG ZONES are clear. The LIVER does not have any solid masses. There is no intrahepatic biliary dilatation. The GALLBLADDER has been previously removed.. The PANCREAS does not demonstrate any masses. There is no retroperitoneal adenopathy. The SPLEEN and ADRENAL GLANDS have a unremarkable CT appearance. The ABDOMINAL AORTA has no aneurysmal dilatation. There is no retroperitoneal adenopathy. The KIDNEYS do not have any stones or hydronephrosis. The stomach and duodenum are unremarkable. The small bowel is not dilated. Limited views of the colon are unremarkable. IMPRESSION: 1. The abdomen and pelvis do not demonstrate any masses. 2. Small hiatal hernia is present. 3. The visualized the lower lung zones are clear. 4. The visualized portions of the small bowel and colon do not have any focal inflammatory change. [id number] Procedure Note Jake Holguin III, MD - 05/30/2020 EXAMINATION: CT ABDOMEN W CONTRAST CLINICAL HISTORY: K21.00 Gastro-esophageal reflux disease withesophagitis without bleeding, REFLUX TECHNIQUE:Multiple axial images of the abdomen were obtained followingintravenous administration of iodinated contrast. Sagittal and coronalcomputerized reformatted images were also obtained. COMPARISON: August 1999 CT scans are performed using radiation dose reduction techniques.Technical factors are evaluated and adjusted to ensure appropriatemoderation of exposure. Automated dose management technology is appliedto adjust radiation exposure while achieving a diagnostic quality image. FINDINGS: The visualized LOWER LUNG ZONES are clear. The LIVER does not have any solid masses. There is no intrahepaticbiliary dilatation. The GALLBLADDER has been previously removed.. The PANCREAS does not demonstrate any masses. There is no retroperitonealadenopathy. The SPLEEN and ADRENAL GLANDS have a unremarkable CT appearance. The ABDOMINAL AORTA has no aneurysmal dilatation. There is noretroperitoneal adenopathy. The KIDNEYS do not have any stones or hydronephrosis. The stomach and duodenum are unremarkable. The small bowel is notdilated. Limited views of the colon are unremarkable. IMPRESSION: 1. The abdomen and pelvis do not demonstrate any masses. 2. Small hiatal hernia is present. 3. The visualized the lower lung zones are clear. 4. The visualized portions of the small bowel and colon do not have anyfocal inflammatory change. [id number] Huan Martinez MD IMG CT ORDERABLES F inal Result * FL UGI with or without KUB (05/24/2020 9:46 AM IDENTIFICATION AND RECORDS COMMANDER) Anatomical Region Laterality Modality Abdomen Radio Fluoroscop y 05/24/2020 4:51 PM IDENTIFICATION AND RECORDS COMMANDER Narrative 05/24/2020 4:54 PM IDENTIFICATION AND RECORDS COMMANDER EXAMINATION: FL UGI W OR WO KUB CLINICAL HISTORY: K21.00 Gastro-esophageal reflux disease with esophagitis without bleeding, REFLUX COMPARISON: None. TECHNIQUE: UPPER GI SERIES was performed with effervescent granules and barium. FLUOROSCOPIC TIME: 1.2 minute Total radiation dose: 18.0mGy. DAP: 716.06 Gycm2. Number of series/images: 55. FINDINGS: 1. Esophagus: Esophagus was distensible. The mucosa and motility were within normal limits. There is no evidence of stricture. 2. Gastroesophageal junction: No evidence of hiatal hernia. Mild intermittent gastroesophageal reflux is seen. 3. Stomach: Normally distensible and demonstrates normal contours and mucosal pattern. 4. Duodenum: Bulb and sweep are normal. The duodenal-jejunal junction is in the normal expected position. IMPRESSION: Unremarkable upper GI series exam with the exception of mild intermittent gastroesophageal reflux. [id number] Procedure Note Vita King, DO - 05/24/2020 EXAMINATION: FL UGI W OR WO KUB CLINICAL HISTORY: K21.00 Gastro-esophageal reflux disease withesophagitis without bleeding, REFLUX COMPARISON: None. TECHNIQUE: UPPER GI SERIES was performed with effervescent granules andbarium. FLUOROSCOPIC TIME: 1.2 minute Total radiation dose: 18.0mGy. DAP: 716.06 Gycm2. Number of series/images: 55. FINDINGS: 1. Esophagus: Esophagus was distensible. The mucosa and motility werewithin normal limits. There is no evidence of stricture. 2. Gastroesophageal junction: No evidence of hiatal hernia. Mildintermittent gastroesophageal reflux is seen. 3. Stomach: Normally distensible and demonstrates normal contours andmucosal pattern. 4. Duodenum: Bulb and sweep are normal. The duodenal-jejunal junction isin the normal expected position. IMPRESSION: Unremarkable upper GI series exam with the exception of mild intermittentgastroesophageal reflux. [id number] us Huan Martinez MD IMG DIAGNOSTIC IMAG ING ORDERABLES Final Result documented in this encounter Visit Diagnoses Diagnosis Gastro-esophageal reflux disease with esophagitis- Primary Reflux esophagitis documented in this encounter Additional Health Concerns Infection Onset Date Last Indicated Resolved Time r/o Coronavirus COVID-19 ([place] spected) (A+C) 06/02/2020 06/02/2020 06/04/2020 7:[address] [facility] (C ) Comment:Urine 12/13/20 12/13/2020 12/16/2020 01/08/2023 7:27 PM CDT documented as of this encounter Care Teams Parts Counterperson Relationship Specialty Start Date End Date Huan Martinez MD PCP - General Family Medicine 05/18/20 documented as of this encounter
--- OUTSIDE RECORDS SUMMARY | 2025-01-13 21:09 | XMS_ITS | Encounter Summary ---
Author Organization [facility] Address [address] [place] [address] Care Team Providers Care Air Control Electronics Operator Name Role Phone Huan Martinez MD Primary Care Provi lani Encounter Details Date Type Department Care Team (Late st Contact Info) Description 06/02/2020 Transcribe Orders [facility] Central Scheduling [phone] Dickson Aguirre MD [address] [place] [address] Contact with and (suspected) exposure to other viral communicable diseases (Primary Dx) Social History Tobacco Use Types Packs/Day Years Used Date Smoking Tobacco: Never Assessed Comments Unknown Sex and Gender Information Value Date Recorded Sex Assigned at Not on file Legal Sex Female 2:17 AM PLATINUM SMITH Gender Identity Not on file Sexual Orientation Not on file COVID-19 Exposure Response Date Recorded In the last month, have you been in contact with someone who was confirmed or suspected to have Coronavirus / COVID-19? Yes 06/02/2020 11:43 AM PLATINUM SMITH documented as of this encounter Plan of Treatment Not on file documented as of this encounter Results * COVID-19 qualitative PCR (06/02/2020 2:39 PM PLATINUM SMITH) Interpretation Negative results do not preclude 2019-nCoV infection and should not be used as the sole basis for treatment or other patient management decisions. Negative results must be combined with clinical observations, patient history, and epidemiological information. 06/03/2020 3:37 AM PLATINUM SMITH [facility] COVID-19 qualitative RT-PCR result Not-Detected Not-Det ected 06/03/2020 3:37 AM PLATINUM SMITH [facility] COVID-19 qualitative RT-PCR PDF See link below for PDF Lab Report [facility] Comment: [id number] Nasopharyngeal swab 06/02/19 2:39 PM PLATINUM SMITH 06/02/2020 8:46 PM PLATINUM SMITH Dickson Aguirre MD LAB BLOOD ORDERABLES Final Result [facility] [address] [place] [address] [address] documented in this encounter Visit Diagnoses Diagnosis Contact with and (suspected) exposure to other viral communicable diseases- Primary documented in this encounter Additional Health Concerns Infection Onset Date Last Indicated Resolved Time r/o Coronavirus COVID-19 ([place]iff[place] spected) (A+C) 06/02/2020 06/02/2020 06/04/2020 7:[address] [facility] (C ) Comment:Urine 12/13/20 12/13/2020 12/16/2020 01/08/2023 7:27 PM CDT documented as of this encounter Care Teams Air Control Electronics Operator Relationship Specialty Start Date End Date Huan Martinez MD PCP - General Family Medicine 05/18/20 documented as of this encounter
--- OUTSIDE RECORDS SUMMARY | 2025-01-13 21:09 | XMS_ITS | Encounter Summary ---
Author Organization [facility] Address [address] [place] [address] Care Team Providers Care Fish Cake Maker Name Role Phone Huan Martinez MD Primary Care Provi lani Reason for Referral * MRI/CAT/PET Scan (Routine) - Closed Specialty Diagnoses / Procedures Referred By Contac t Referred To Contact Radiology Diagnoses Bilateral hilar adenopathy syndrome Procedures MRI Neck Soft Tissue W Wo Contrast Huan Martinez MD Phone: tel: fax: [facility] [address] [place] [address] Referral ID Status Reason Start Date Expiration Date Visits Re quested Visits Authorized [id number] Closed 01/08/2019 01/09/2020 1 1 Encounter Details Date Type Department Care Team (Late st Contact Info) Description 01/08/2019 Transcribe Orders [facility] Central Scheduling [phone] Huan Martinez MD [address] [place] [address] Bilateral hilar adenopathy syndrome (Primary Dx) Social History Tobacco Use Types Packs/Day Years Used Date Smoking Tobacco: Never Assessed Comments Unknown Sex and Gender Information Value Date Recorded Sex Assigned at Not on file Legal Sex Female 2:17 AM PROPERTY APPRAISER Gender Identity Not on file Sexual Orientation Not on file documented as of this encounter Plan of Treatment Not on file documented as of this encounter Results * MRI Neck Soft Tissue W Wo Contrast (01/28/2019 12:29 PM CDT) Anatomical Region Laterality Modality Neck Magnetic Resonan ce 01/28/2019 1:08 PM CDT Narrative 01/28/2019 1:12 PM CDT EXAMINATION: MRI NECK SOFT TISSUE W WO CONTRAST CLINICAL HISTORY: R59.0 Localized enlarged lymph nodes, bilaterial hilar adenopathy syndrome COMPARISON: None. TECHNIQUE: Multisequence multiplanar MRI images of the neck were obtained with and without IV contrast. FINDINGS: No neck mass, adenopathy, or fluid collection. Normal appearance of the parotid and submandibular glands. Normal appearance of the thyroid gland. No asymmetric mucosal/submucosal thickening or enhancement of the pharynx or larynx. Multilevel moderate degenerative changes of the cervical spine. IMPRESSION: No neck mass, adenopathy, or fluid collection. [id number] Procedure Note Zacarias Molina MD - 01/28/2019 EXAMINATION: MRI NECK SOFT TISSUE W WO CONTRAST CLINICAL HISTORY: R59.0 Localized enlarged lymph nodes, bilaterial hilaradenopathy syndrome COMPARISON: None. TECHNIQUE: Multisequence multiplanar MRI images of the neck were obtainedwith and without IV contrast. FINDINGS: No neck mass, adenopathy, or fluid collection. Normal appearance of theparotid and submandibular glands. Normal appearance of the thyroid gland.No asymmetric mucosal/submucosal thickening or enhancement of the pharynxor larynx. Multilevel moderate degenerative changes of the cervical spine. IMPRESSION: No neck mass, adenopathy, or fluid collection. [id number] us Huan Martinez MD IMG MRI ORDERABLES Final Result documented in this encounter Visit Diagnoses Diagnosis Bilateral hilar adenopathy syndrome- Primary Enlargement of lymph nodes Bilateral hilar adenopathy syndrome Enlargement of lymph nodes documented in this encounter Additional Health Concerns Infection Onset Date Last Indicated Resolved Time r/o Coronavirus COVID-19 ([place]iffin spected) (A+C) 06/02/2020 06/02/2020 06/04/2020 7:[address] [facility] (C ) Comment:Urine 12/13/20 12/13/2020 12/16/2020 01/08/2023 7:27 PM CDT documented as of this encounter Care Teams Fish Cake Maker Relationship Specialty Start Date End Date Huan Martinez MD PCP - General Family Medicine 05/18/20 documented as of this encounter
--- OUTSIDE RECORDS SUMMARY | 2025-01-13 21:09 | XMS_ITS | Patient Health Record ---
Author Organization [facility] Address [address] [place] [id number] Care Team Providers Care Line Construction Engineer Name Role Phone Cintia Bundy Primary Care Provider Suzan GEORGES MELANI Unavailable [phone] Allergies No Known Allergies Reason For Referral No Information Medications Medication SIG (Take, Route, Frequency, Duration) Notes Start Date End Date Status Glimepiride 2 MG TAKE 1 TABLET BY EFFIE TH EVERY DAY WITH BREAKFAST OR THE FIRST MAIN MEAL OF THE DAY FOR 90 DAYS Oral; Duration: 90 Days Active Acetaminophen Extra Strength 500 MG TAKE 2 TABLETS EVERY 6 HOURS NEEDED FOR PAIN Oral; Duration: 7 Days Active Lisinopril 5 MG TAKE 1 [...] EVERY DAY Oral; Duration: 90 Days Active Problems Problem Type SNOMED Code ICD Code Onset Dates Problem Status W/U Status Risk Notes Problem Type II diabetes mellitus without complication (322212799) Type 2 diabetes mellitus without complications (E11.9) Active confirmed Problem Hyperlipidemia (39016355) Hyperlipidemia, unspecified (E78.5) Active confirmed Problem Essential hypertension (46576993) Essential (primary) hypertension (I10) Active confirmed Problem Cerebral infarction (985356214) CVA - Cerebral Infarction (I63.9) Active confirmed Problem Peripheral vascular disease (018672432) Peripheral vascular disease, unspecified (I73.9) Active confirmed Problem Pain in right leg (914848871) Pain in right leg (M79.604) Active confirmed Problem Pain in left leg (468080149) Pain in left leg (M79.605) Active confirmed Problem Precordial pain (88414562) Chest pain, precordial (R07.2) Active confirmed Problem Other specified symptoms and signs involving the circulatory and respiratory systems (R09.89) Active confirmed Problem Electrocardiogram abnormal (817446748) Abnormal EKG (R94.31) Active confirmed Problem Venous insufficiency of leg (disorder) (543447320) Venous insufficiency (I87.2) Active confirmed Plan Of Treatment No Information Insurance Providers Payer Name Payer Address Payer Phone Subscriber Number Group Number Insured Name Patient Relationship to Insured Coverage Start Date Coverage End Date [employer] [facility] Dual Complete HMO POS [address] [address] [place] [address] [id number] TXDSFlaca Oswald Self - patient is the insured 4 MEDICAID/TMHP [address] [place] [address] [id number] Abel Flaca Self - patient is the insured 8 Medical (General) History Medical History History ICD Code Hypertension hyperlipidemia Diabetes COVID-2019 x2 Mini Stroke- 2019 Surgical History Surgery Date(Month/Year) Gall Bladder Hospitalization History Reason Date(Month/Year) Mini stroke @ [facility] in [place] 2019
--- OUTSIDE RECORDS SUMMARY | 2025-01-13 21:09 | XMS_ITS | Clinical Summary ---
Author Organization [facility] Address [address] [place] [address] Care Team Providers Care Helmet Binder Name Role Phone Unavailable Primary Care Provider Unavailabl e Social History Tobacco Use Types Packs/Day Years Used Date Smoking Tobacco: Never Assessed Comments Unknown Sex and Gender Information Value Date Recorded Sex Assigned at Not on file Legal Sex Female 6:34 PM EDT Gender Identity Not on file Sexual Orientation Not on file Last Filed Vital Signs Vital Sign Reading Time Taken Comments Blood Pressure 120/64 11/06/2017 12:00 PM EDT Pulse - - Temperature - - Respiratory Rate - - Oxygen Saturation - - Inhaled Oxygen Concentration - - Weight 72.6 kg (160 lb) 04/11/2020 12:00 PM EST Height 147.3 cm (4' 10 ) 04/11/2020 12:00 PM EST Body Mass Index 33.44 04/11/2020 12:00 PM EST Plan of Treatment Not on file
--- OUTSIDE RECORDS SUMMARY | 2025-01-13 21:09 | XMS_ITS | Patient Health Record ---
Author Organization [facility] [place] Address [address] [place] [address] Care Team Providers Care Quality Reviewer Name Role Phone Juan Manuel Dickerson Primary Care Provider Unavailabl e NAHOMI FRIAS Unavailable Unavailable Migration, Provider Unavailable Unavailable Reason For Referral No Information Problems Problem Type SNOMED Code ICD Code Onset Dates Problem Status W/U Status Risk Notes Problem Left upper quadrant pain (071139790) Left upper quadrant pain (R10.12) 01/16/20 16 Active confirmed Problem Acute gastritis (00829046) Acute gastritis without bleeding (K29.00) 02/02/20 16 Active confirmed Problem Diverticular disease of colon (351133515) Diverticulosis of large intestine without perforation or abscess without bleeding (K57.30) 02/02/20 16 Active confirmed Encounters Encounter Location Date Provider Diagnosis [facility] [address] [place] [address] 03/14/2024 Provider Migration [facility] [address] [address] 03/15/2024 Provider Migration Plan Of Treatment No Information Medical (General) History Surgical History Surgery Date(Month/Year) Cholecystectomy
[2025-01-13 21:33] VITALS: BP 175/92; PULSE 62; TEMP 36.7; O2SAT 100
--- NOTE | 2025-01-13 21:45 | ED_ITS ---
HPI - Ear Problem General Chief complaint: Ear Stated complaint: LEFT HEAR PAIN Time Seen by Provider: 01/13/25 21:21 Source: patient Mode of arrival: walk-in Limitations: language barrier Limitations comment: patient does have daughter at bedside History of Present Illness HPI Narrative: 89-year-old female presents here chief complaint of left ear pain. Patient is here with daughter as she is Micronesian-speaking. Daughter is interpreting stating that she complained of ear pain it worsened throughout the evening and daughter noticed swelling. Patient does normally wear hearing aids to this ear. She has not been swimming or had any recent showers. She has pain to the tragus of the ear with swelling. The meatus is open. Related Data Previous Rx's ?Medication ?Instructions ?Recorded ofloxacin 0.3 % ear drops 10 drp otic (ear) DAILY 7 da ys #5 01/13/25 mL Allergies Allergy/AdvReac Type Severity Reaction Status Date / Time No Known Drug Allergies Allergy Verified 01/13/25 21:33 Review of Systems ROS0 Status of ROS 10 or more systems reviewed and unremark able except as noted in history and below Exam Narrative Exam Narrative: All Systems are negative except as noted/marked.All systems reviewed and otherwise negative Nurses note and vital signs reviewed and patient is not hypoxic. General: The patient appears well and in no apparent distress. Patient is resting comfortably on cart. Skin: Warm, dry, no pallor noted. There is no rash noted. Head: Normocephalic, atraumatic Eye: Normal conjunctiva, no drainage, EOMI. PERRL Ears, Nose, Mouth, and Throat: oral mucosa is moist. Nares patent. Mouth without vesicles. left ear pain, tragus swelling, meatus patent Ear canals patent. Tm's without Erythema Cardiovascular: Regular Rate and Rhythm Musculoskeletal: The patient has no evidence of calf tenderness, no pitting edema, symmetrical pulses noted bilaterally Neurological: A&O x4, normal speech Psychiatric: Cooperative Constitutional Vital Signs, click to edit/add: Last Vital Signs Temp 98.1 F 01/13/25 21:33 Pulse 62 01/13/25 21:33 Resp 20 01/13/25 21:33 BP 175/92 H 01/13/25 21:33 Pulse Ox 100 01/13/25 21:33 O2 Del Method Room Air 01/13/25 21:33 Course Vital Signs Vital signs: Vital Signs Temperature 98.1 F 01/13/25 21:33 Pulse Rate 62 01/13/25 21:33 Respiratory Rate 20 01/13/25 21:33 Blood Pressure 175/92 H 01/13/25 21:33 Pulse Oximetry 100 01/13/25 21:33 Oxygen Delivery Method Room Air 01/13/25 21:33 Temperature 98.1 F 01/13/25 21:33 Pulse Rate 62 01/13/25 21:33 Respiratory Rate 20 01/13/25 21:33 Blood Pressure 175/92 H 01/13/25 21:33 Pulse Oximetry 100 01/13/25 21:33 Oxygen Delivery Method Room Air 01/13/25 21:33 Medical Decision Making MDM Narrative Medical decision making narrative: 89-year-old female presents here chief complaint of left ear pain. Patient is here with daughter as she is Micronesian-speaking. Daughter is interpreting stating that she complained of ear pain it worsened throughout the evening and daughter noticed swelling. Patient does normally wear hearing aids to this ear. She has not been swimming or had any recent showers. She has pain to the tragus of the ear with swelling. The meatus is open. Emergency room chief complaint left ear pain examination consistent with otitis externa. Medicated here with Floxin otic drops 5 drops to the left ear. And also 1 [place]. She will be discharged home with a prescription for ofloxacin drops 10 drops daily for the next 7 days as well as [place] prescription. Patient's daughter lives with her. She states she will help her with the drops. Patient will be discharged home with otitis externa instructions. Differential Diagnosis Differential Diagnosis: Otitis media, otitis externa Medical Records Medical records reviewed: Yes I reviewed the patient's medical records Discharge Plan Discharge Chief Complaint: Ear Clinical Impression: Otitis externa Patient Disposition: Home, Self-Care Time of Disposition Decision: 21:42 Condition: Good Prescriptions / Home Meds: New ofloxacin 0.3 % drops 10 drp otic (ear) DAILY 7 Days Qty: 5 0RF Print Language: Micronesian Instructions: Swimmer's Ear (ED) Referrals: RUFINA COLEMAN [Primary Care Provider, Family Practice] - 1 week
[2025-01-13] MEDS: HYDROCODONE/ACET 5-325 MG TABLET 1 TAB PO (21:57)
[2025-01-13] MEDS: OFLOXACIN 0.3% OP SOL 100 DROP/5 ML BOTTLE OP (21:57)
== END 2025-01-13 22:05 | disposition home or self-care (01) ==
PROVIDERS: Emergency Provider Emergency Medicine; PCP Family Medicine
DX: H60.92 Unspecified otitis externa, left ear (principal)
CPT/HCPCS: 99283